=== PATIENT | female | born 1945 | race Caucasian/White ===

== ENCOUNTER 2017-06-06 12:00 | Emergency (ER) | payer MEDICARE, OTHER, BC ==
[2017-06-06] MEDS ORDERED: Sodium Chloride 0.9% 1,000 ML IV SCH (12:30)
[2017-06-06] MEDS ORDERED: Diltiazem 25 MG/5 ML SDV IVPUSH ONE (12:30)
--- NOTE | 2017-06-06 12:35 | EDM.PDOC ---
ED HPI GENERAL MEDICAL PROBLEM - General Chief Complaint: Respiratory Problem Stated Complaint: COPD Time Seen by Provider: 06/06/17 12:25 Source of Information: Reports: Patient, Family (daughter) History Limitations: Reports: No Limitations - History of Present Illness INITIAL COMMENTS - FREE TEXT/NARRATIVE: 71-year-old female presents the ED with feeling of being very dizzy and lightheaded. Symptoms seem to start on the highway near [place], [place] and en route to [place]. That stopped at [facility] to get something to eat and subsequently she started to feel unwell. When she laid down here and was placed on the monitor she was in a sinus tachycardia with intermittent atrial tachycardia or junctional tachycardia up to 170/m. She denies any chest pain she is chronically short of breath and is on oxygen due to COPD. Has a mild cough. No fever or chills. She's had one previous bout of similar type arrhythmia. Onset: Today Onset Date: 06/06/17 Onset Time: 11:00 Duration: Minutes: Location: Reports: Generalized Quality: Reports: Other Severity: Moderate (Feeling very dizzy and lightheaded.) Improves with: Reports: Rest Worsens with: Reports: Other (And lying down. Negative.), Movement Context: Denies: Activity, Exercise, Lifting, Sick Contact, Trauma Associated Symptoms: Reports: Cough, cough w sputum (Chronic cough), Malaise. 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 (see below) (Nothing new.) - Related Data Allergies Allergy/AdvReac Type Severity Reaction Status Date / Time No Known Allergies Allergy Verified 06/06/17 12:15 Home Meds: Home Meds Budesonide/Formoterol [Symbicort 160-4.5 MCG] 2 inhalation INH BID 01/30/16 [ History] Sertraline HCl 75 mg PO PCDINNER 01/30/16 [History] Tiotropium [Spiriva Handihaler] 1 inhalation INH DAILY 01/30/16 [History] Gluc/Dhaval-Msm#2/C/D3/Agapito/Born [Mnywkmqbqa-Rxskcimvhiy-TNU] 1 tab PO PCDINNER [History] Multivitamin [One Daily] 1 tab PO PCDINNER 02/02/16 [History] Roflumilast [Daliresp] 500 mcg PO PCDINNER 05/28/16 [History] Albuterol [Ventolin HFA] 2 puff INH TID PRN 11/11/16 [History] Ascorbic Acid [Vitamin C] 1,000 mg PO PCDINNER 11/11/16 [History] Benzonatate 100 mg PO TID PRN 11/11/16 [History] Cholecalciferol (Vitamin D3) [Vitamin D3] 1,000 units PO PCDINNER 11/11/16 [ History] Fluticasone Propionate [Flovent] 2 sprays NASBOTH DAILY 11/11/16 [History] Albuterol/Ipratropium [DuoNeb 3.0-0.5 MG/3 ML] 3 ml NEB Q6H PRN 12/18/16 [ History] LORazepam 0.5 mg PO ASDIRECTED PRN 12/18/16 [History] Amiodarone [Cordarone] 200 mg PO BID #60 tablet 06/06/17 [Rx] Magnesium Chloride [Slow-Mag] 71.5 mg PO BID #60 tablet.dr 06/06/17 [Rx] guaiFENesin/Codeine Phosphate [Guaifenesin AC Cough Syrup] 5 ml PO Q4H PRN 06/06 [History] Past Medical History - Past Health History Medical/Surgical History: Denies Medical/Surgical History HEENT History: Reports: Impaired Vision Other HEENT History: glasses Cardiovascular History: Reports: Arrhythmia Respiratory History: Reports: Asthma, Bronchitis, Recurrent, COPD, Other (See Below) Other Respiratory History: Emphysema, wears O2 chronically Genitourinary History: Reports: None DIRECTOR PATIENT History: Reports: Musculoskeletal History: Reports: Arthritis Neurological History: Reports: None Psychiatric History: Reports: Depression Endocrine/Metabolic History: Reports: None Hematologic History: Reports: None Immunologic History: Reports: None Oncologic (Cancer) History: Reports: None - Infectious Disease History Infectious Disease History: Reports: Chicken Pox, Measles - Past Surgical History Cardiovascular Surgical History: Reports: None Respiratory Surgical History: Reports: None GI Surgical History: Reports: Appendectomy, Cholecystectomy Female Surgical History: Reports: Section Endocrine Surgical History: Reports: None Neurological Surgical History: Reports: None Musculoskeletal Surgical History: Reports: Other (See Below) Other Musculoskeletal Surgeries/Procedures:: neck pain Social & Family History - Family History Family Medical History: Noncontributory - Tobacco Use Smoking Status *Q: Former Smoker Years of Tobacco use: 50 Packs/Tins Daily: 1 Used Tobacco, but Quit: Yes Month Tobacco Last Used: patient doesn't remember Second Hand Smoke Exposure: No - Caffeine Use Caffeine Use: Reports: Coffee Caffeine Use Comment: 2-3cups/day - Alcohol Use Days Per Week of Alcohol Use: 7 Number of Drinks Per Day: 1 Total Drinks Per Week: 7 - Recreational Drug Use Recreational Drug Use: No - Living Situation & Occupation Living situation: Reports: Occupation: Retired (Resides in [place].) ED ROS GENERAL - Review of Systems Review Of Systems: See Below Constitutional: Denies: Fever, Chills, Malaise, Weakness, Fatigue, Weight Loss HEENT: Reports: Glasses Respiratory: Reports: Shortness of Breath, Wheezing (Chronic COPD. Is oxygen dependent.), Cough (Chronic cough with sputum is white to yellow clear in color) . Denies: Pleuritic Chest Pain Cardiovascular: Reports: Blood Pressure Problem, Dyspnea on Exertion. Denies: Chest Pain, Claudication, Edema, Lightheadedness, Orthopnea (Hypertension) Endocrine: Reports: Fatigue (Chronically) : Reports: Frequency, Incontinence (Both urge and stress components) Musculoskeletal: Reports: Joint Pain Skin: Reports: No Symptoms (Knees hips and low back) Neurological: Reports: Dizziness (Quite severe at this time), Difficulty Walking (Chronically) Psychiatric: Reports: No Symptoms Hematologic/Lymphatic: Reports: No Symptoms Immunologic: Reports: No Symptoms ED EXAM, GENERAL - Physical Exam Exam: See Below Exam Limited By: No Limitations General Appearance: Alert, WD/WN, Mild Distress, Other (Is on oxygen 2 L/m all times.) Eye Exam: Bilateral Eye: Normal Inspection Throat/Mouth: Normal Inspection, Normal Lips, Normal Oropharynx Head: Atraumatic, Normocephalic Neck: Normal Inspection, Supple, Non-Tender, Full Range of Motion. No: Lymphadenopathy (L), Lymphadenopathy (R) Respiratory/Chest: Respiratory Distress, Decreased Breath Sounds (Mild tachypnea at rest.), Wheezing ( Breath sounds diminished in the lower 50% of lung ochoa. occasional expiratory wheeze. ). No: Rales Cardiovascular: Normal Peripheral Pulses, Irregularly Irregular (Rate is markedly irregular irregular anywhere from 125-1 70/m. It seems to be a combination of sinus rhythm with junctional tachycardia.). No: Regular Rate, Rhythm Peripheral Pulses: 2+: Posterior Tibial (L), Posterior Tibial (R), Dorsalis Pedis (L), Dorsalis Pedis (R) GI/Abdominal: Normal Bowel Sounds, Soft, Non-Tender, No Organomegaly, Other (Is missing her appendix and gallbladder.) Back Exam: Normal Inspection. No: CVA Tenderness (L), CVA Tenderness (R) Extremities: Non-Tender, No Pedal Edema Neurological: Alert, Oriented, CN II-XII Intact, Normal Cognition Psychiatric: Normal Affect, Normal Mood Skin Exam: Warm, Dry, Intact, Normal Color, No Rash EKG INTERPRETATION EKG Date: 06/06/17 Time: 12:20 Rhythm: Other (Is a combination of sinus tachycardia mixed with a junctional tachycardia) Rate (Beats/Min): 170 [place]: Normal P-Wave: Variable QRS: Other (Decreased voltage in the precordial leads. Normal R-wave transition. Diffuse early repolarization pattern related to rate.) ST-T: Normal QT: Normal Course - Vital Signs Last Recorded V/S: Last Vital Signs Temp 37.1 C 06/06/17 12:10 Pulse 110 H 06/06/17 12:10 Resp 20 06/06/17 12:10 BP 148/80 H 06/06/17 12:10 Pulse Ox 95 06/06/17 12:10 - Orders/Labs/Meds Orders: Active Orders 24 hr Category Date Time Status EKG 12 Lead [EKG Documentation Completion] [RC] STAT Care 06/06/17 12:17 Active EKG Documentation Completion [RC] STAT Care 06/06/17 12:31 Active EKG Documentation Completion [RC] STAT Care 06/06/17 14:00 Active Chest 1V Frontal [CR] Stat Exams 06/06/17 12:31 Taken Sodium Chloride 0.9% [Normal Saline] 1,000 ml Med 06/06/17 12:30 Active IV ASDIRECTED Medication Orders Sodium Chloride (Normal Saline) 1,000 mls @ 75 mls/hr IV ASDIRECTED PAUL Last Admin: 06/06/17 12:52 Dose: 75 mls/hr Labs: Laboratory Tests 06/06/17 06/06/17 06/06/17 Range/Units 12:20 12:20 12:20 WBC 8.63 (3.98-10.04) K/mm3 RBC 4.25 (3.98-5.22) M/mm3 Hgb 12.8 (11.2-15.7) gm/L Hct 40.4 (34.1-44.9) % MCV 95.1 H (79.4-94.8) fl MCH 30.1 (25.6-32.2) pg MCHC 31.7 L (32.2-35.5) g/dl RDW Std Deviation 44.1 (36.4-46.3) fL Plt Count 194 (182-369) K/mm3 MPV 9.4 (9.4-12.3) fl Neutrophils % (Manual) 61 H (40-60) % Band Neutrophils % 0 (0-10) % Lymphocytes % (Manual) 38 (20-40) % Atypical Lymphs % 0 % Monocytes % (Manual) 1 L (2-10) % Eosinophils % (Manual) 0 L (0.7-5.8) % Basophils % (Manual) 0 L (0.1-1.2) Platelet Estimate Adequate RBC Morph Comment Normal PT 10.0 (8.0-13.0) SECONDS INR 0.92 Sodium 140 (136-145) mEq/L Potassium 3.5 (3.5-5.1) mEq/L Chloride 102 (98-107) mEq/L Carbon Dioxide 34 H (21-32) mEq/L Anion [place] 7.5 (5-15) BUN 10 (7-18) mg/dL Creatinine 0.8 (0.55-1.02) mg/dL Est Cr Clr Drug Dosing 51.79 mL/min Estimated GFR (MDRD) > 60 (>60) mL/min BUN/Creatinine Ratio 12.5 L (14-18) Glucose 207 H (83-115) mg/dL Calcium 9.0 (8.5-10.1) mg/dL Magnesium 1.5 L (1.8-2.4) mg/dl Total Bilirubin 0.5 (0.2-1.0) mg/dL AST 19 (15-37) U/L ALT 25 (14-59) U/L Alkaline Phosphatase 68 (46-116) U/L CK-MB (CK-2) 1.0 (0-3.6) ng/ml Troponin I < 0.017 (0.00-0.056) ng/mL Knl-F-Mpqyrwqheyx Pept 99 (0-125) pg/mL Total Protein 6.3 L (6.4-8.2) g/dl Albumin 3.4 (3.4-5.0) g/dl Globulin 2.9 gm/dL Albumin/Globulin Ratio 1.2 (1-2) Meds: Medications Generic Name Dose Route Start Last Admin Trade Name Freq PRN Reason Stop Dose Admin Sodium Chloride 1,000 mls @ 75 mls/hr 06/06/17 12:30 06/06/17 12:52 Normal Saline IV 75 mls/hr ASDIRECTED PAUL Administration Discontinued Medications Generic Name Dose Route Start Last Admin Trade Name Freq PRN Reason Stop Dose Admin Amiodarone HCl 200 mg 06/06/17 14:57 Cordarone PO 06/06/17 14:58 ONETIME ONE Diltiazem HCl 10 mg 06/06/17 12:30 06/06/17 12:53 Diltiazem IVPUSH 06/06/17 12:31 10 mg ONETIME ONE Administration Amiodarone HCl/Dextrose 150 mg 100 mls @ 400 mls/hr 06/06/17 12:54 06/06/17 13:10 / Premix IV 06/06/17 13:08 400 mls/hr NOW ONE Administration Protocol - Radiology Interpretation Free Text/Narrative:: 71-year-old lady who resides in [place] but is traveling to [facility] today developed dizziness and lightheadedness well seated in the vehicle about mandate an. She continues to feel this way denies any central chest pressure discomfort she is chronically dyspneic due to COPD and is oxygen dependent. She feels perhaps she is a little more short of breath than normal. She is not aware that her heart is beating very fast. She gives a history that it has done so in the past. Were still getting a list of her current medications. If she is not on theophylline. The ECG suggests a junctional tachycardia at 1 70/m. Possible underlying atrial fibrillation as a rhythm. Will need to be slowed down so that I can determine the underlying rhythm. Plan IV normal saline at 75 mils per hour. Will give her Cardizem 10 mg IV bolus. Routine labs including magnesium and BNP to be done. - Re-Assessments/Exams Free Text/Narrative Re-Assessment/Exam: 06/06/17 12:54 heart rate is slow down to the 130s and is sinus with intermittent junctional atrial tachycardia. It still will travel up as high as 150/m. BP is maintained at 120/84. I'm therefore going to place her on amiodarone giving her 150 mg over the next half hour. She has advanced terminal COPD and is therefore not a good candidate for beta blockade. 06/06/17 15:06 lab work revealed a normal white count at 8.63 with 61% neutrophils and no bands hemoglobin is 12.8 hematocrit of 40.4 platelets are 94, 000. Coags were normal with a PT of 10.01 and INR 0.92. Sodium was 140 potassium is 3.5 low normal cord 102 bicarbonate 34 i.e. CO2 retainer. Glucose was 207 BNP was 99. Urinary other abnormality was a slightly low magnesium level I.5. Amiodarone reduced her heart rate into the 1 teens and 105 area it is mostly sinus but there are frequent atrial premature contractions with some junctional beats as well. Therefore I'm going to place her on amiodarone 200 mg twice daily with initial tablet 200 mg given in the ED today. She'll follow-up with her personal physician in [place] tomorrow or the next day. We had her up walking and she tolerated it okay. Departure - Departure Time of Disposition: 15:00 Disposition: Home, Self-Care 01 Condition: Fair Clinical Impression: Atrial tachycardia, paroxysmal - Discharge Information Prescriptions: Amiodarone [Cordarone] 200 mg PO BID #60 tablet Magnesium Chloride [Slow-Mag] 71.5 mg PO BID #60 tablet. Referrals: PCP,Not In Area [Primary Care Provider] - Forms: ED Department Discharge Additional Instructions: Evaluation in the emergency room today due to sudden onset of dizziness while traveling back from [place] towards [place]. When he arrived here your heart rate was found to be highly irregular with a atrial tachycardia mixed with a junctional tachycardia. The heart rate was as fast as 170/m. You're therefore given a dose of amiodarone 150 mg IV which brought the heart rate down under control to around [id number]. You were also given a tablet of amiodarone 200 mg while in the ED. This tablet will need to be continued at least twice daily for the next several weeks until a steady dose effect occurs and see how your heart rate response to the medication. Eventually our hope would be to get it down to 100 mg once a day. I would strongly suggest follow-up with her doctor tomorrow or certainly the next day for follow-up. Of note all of your lab work was otherwise normal other than a magnesium level that was slightly on the low side. Therefore I will also prescribe magnesium supplement called Slow-Mag you' re to take one tablet twice daily. - My Orders Last 24 Hours: My Active Orders 06/06/17 12:17 EKG 12 Lead [EKG Documentation Completion] [RC] STAT 06/06/17 12:30 Sodium Chloride 0.9% [Normal Saline] 1,000 ml IV ASDIRECTED 06/06/17 12:31 EKG Documentation Completion [RC] STAT Chest 1V Frontal [CR] Stat 06/06/17 14:00 EKG Documentation Completion [RC] STAT - Assessment/Plan Last 24 Hours: My Active Orders 06/06/17 12:17 EKG 12 Lead [EKG Documentation Completion] [RC] STAT 06/06/17 12:30 Sodium Chloride 0.9% [Normal Saline] 1,000 ml IV ASDIRECTED 06/06/17 12:31 EKG Documentation Completion [RC] STAT Chest 1V Frontal [CR] Stat 06/06/17 14:00 EKG Documentation Completion [RC] STAT
[2017-06-06] MEDS ORDERED: Amiodarone In Dextrose,Iso-Osm 150 MG in Premix Bag 1 BAG IV ONE ×2 (12:54)
[2017-06-06] MEDS ORDERED: Amiodarone 200 MG Tab PO ONE (14:57)
[2017-06-06 15:37] VITALS: BP 117/59
--- NOTE | 2017-06-09 10:46 | CR ---
Chest: Frontal view of the chest was obtained. Comparison: No previous study. Heart size is within normal limits. Tortuous thoracic aorta is seen. Lungs are clear. Bony structures are osteopenic. Mild scoliosis is noted within the spine. Impression: 1. Incidental findings. Nothing acute is identified on frontal chest x-ray. Diagnostic code #2
== END 2017-06-06 15:30 | disposition home or self-care (01) ==
LOC: JD.ED 12:00
DX: I47.1 Supraventricular tachycardia (principal); J44.9 Chronic obstructive pulmonary disease, unspecified; M19.90 Unspecified osteoarthritis, unspecified site; F32.9 Major depressive disorder, single episode, unspecified; R06.02 Shortness of breath; Z79.899 Other long term (current) drug therapy; Z90.49 Acquired absence of other specified parts of digestive tract; Z98.890 Other specified postprocedural states; Z87.891 Personal history of nicotine dependence; R21 Rash and other nonspecific skin eruption
CPT/HCPCS: 36415; 71010; 80053; 82553; 83735; 83880; 84484; 85025; 85610; 93005; 96361; 96365; 96375; 99285; A9270; J0282; J3490; J7040; 99284